=== PATIENT | female | born 1970 ===

== ENCOUNTER → 2017-07-25 | Outpatient (CLI) | payer OTHER | LOC: FIMAGING 09:07 | PROVIDERS: ATTEND Obstetrics & Gynecology | DX: O09.521 Supervision of elderly multigravida, first trimester (principal); O30.041 Twin pregnancy, dichorionic/diamniotic, first trimester; O09.811 Supervision of pregnancy resulting from assisted reproductive technology, first trimester; O10.911 Unspecified pre-existing hypertension complicating pregnancy, first trimester; Z3A.12 12 weeks gestation of pregnancy ==

== ENCOUNTER → 2017-08-22 | Outpatient (CLI) | payer OTHER | LOC: FIMAGING 12:40 | PROVIDERS: ATTEND Obstetrics & Gynecology | DX: O30.042 Twin pregnancy, dichorionic/diamniotic, second trimester (principal); O09.812 Supervision of pregnancy resulting from assisted reproductive technology, second trimester; O10.912 Unspecified pre-existing hypertension complicating pregnancy, second trimester; O99.282 Endocrine, nutritional and metabolic diseases complicating pregnancy, second trimester; O44.42 Low lying placenta NOS or without hemorrhage, second trimester; O09.522 Supervision of elderly multigravida, second trimester; E03.9 Hypothyroidism, unspecified; Z3A.15 15 weeks gestation of pregnancy ==

== ENCOUNTER → 2017-09-19 | Outpatient (CLI) | payer OTHER | LOC: FIMAGING 10:26 | PROVIDERS: ATTEND Obstetrics & Gynecology | DX: O09.522 Supervision of elderly multigravida, second trimester (principal); O09.812 Supervision of pregnancy resulting from assisted reproductive technology, second trimester; O30.042 Twin pregnancy, dichorionic/diamniotic, second trimester; O09.292 Supervision of pregnancy with other poor reproductive or obstetric history, second trimester; Z3A.19 19 weeks gestation of pregnancy ==

== ENCOUNTER → 2017-10-03 | Outpatient (CLI) | payer OTHER | LOC: FIMAGING 14:27 | PROVIDERS: ATTEND Obstetrics & Gynecology | DX: O09.522 Supervision of elderly multigravida, second trimester (principal); O30.042 Twin pregnancy, dichorionic/diamniotic, second trimester; O10.012 Pre-existing essential hypertension complicating pregnancy, second trimester; O99.212 Obesity complicating pregnancy, second trimester; O09.812 Supervision of pregnancy resulting from assisted reproductive technology, second trimester; Z3A.21 21 weeks gestation of pregnancy ==

== ENCOUNTER → 2017-12-05 | Outpatient (CLI) | payer OTHER | LOC: FIMAGING 12:00 | PROVIDERS: ATTEND Obstetrics & Gynecology | DX: O09.513 Supervision of elderly primigravida, third trimester (principal); O30.043 Twin pregnancy, dichorionic/diamniotic, third trimester; O09.813 Supervision of pregnancy resulting from assisted reproductive technology, third trimester; O36.5930 Maternal care for other known or suspected poor fetal growth, third trimester, not applicable or unspecified; Z3A.30 30 weeks gestation of pregnancy ==

== ENCOUNTER → 2017-12-12 | Outpatient (CLI) | payer OTHER | LOC: FIMAGING 13:41 | PROVIDERS: ATTEND Obstetrics & Gynecology | DX: O09.813 Supervision of pregnancy resulting from assisted reproductive technology, third trimester (principal); O30.043 Twin pregnancy, dichorionic/diamniotic, third trimester; O09.523 Supervision of elderly multigravida, third trimester; O10.913 Unspecified pre-existing hypertension complicating pregnancy, third trimester; O36.5931 Maternal care for other known or suspected poor fetal growth, third trimester, fetus 1; Z3A.31 31 weeks gestation of pregnancy ==

== ENCOUNTER → 2017-12-19 | Outpatient (CLI) | payer OTHER | LOC: FIMAGING 13:55 | PROVIDERS: ATTEND Obstetrics & Gynecology | DX: O30.043 Twin pregnancy, dichorionic/diamniotic, third trimester (principal); O36.5931 Maternal care for other known or suspected poor fetal growth, third trimester, fetus 1; O09.813 Supervision of pregnancy resulting from assisted reproductive technology, third trimester; O09.523 Supervision of elderly multigravida, third trimester; O10.913 Unspecified pre-existing hypertension complicating pregnancy, third trimester; Z3A.32 32 weeks gestation of pregnancy ==

== ENCOUNTER → 2017-12-26 | Outpatient (CLI) | payer OTHER | LOC: FIMAGING 09:56 | PROVIDERS: ATTEND Obstetrics & Gynecology | DX: O30.043 Twin pregnancy, dichorionic/diamniotic, third trimester (principal); O09.523 Supervision of elderly multigravida, third trimester; O09.813 Supervision of pregnancy resulting from assisted reproductive technology, third trimester; Z3A.33 33 weeks gestation of pregnancy ==

== ENCOUNTER → 2017-12-31 | Outpatient (CLI) | payer OTHER | LOC: FIMAGING 08:34 | PROVIDERS: ATTEND Obstetrics & Gynecology | DX: O36.5931 Maternal care for other known or suspected poor fetal growth, third trimester, fetus 1 (principal); O30.043 Twin pregnancy, dichorionic/diamniotic, third trimester; O09.813 Supervision of pregnancy resulting from assisted reproductive technology, third trimester; O09.523 Supervision of elderly multigravida, third trimester; O10.913 Unspecified pre-existing hypertension complicating pregnancy, third trimester; Z3A.34 34 weeks gestation of pregnancy ==

== ENCOUNTER → 2018-01-07 | Outpatient (CLI) | payer OTHER | LOC: FIMAGING 08:35 | PROVIDERS: ATTEND Obstetrics & Gynecology | DX: O30.043 Twin pregnancy, dichorionic/diamniotic, third trimester (principal); O09.523 Supervision of elderly multigravida, third trimester; O10.013 Pre-existing essential hypertension complicating pregnancy, third trimester; Z3A.35 35 weeks gestation of pregnancy ==